=== PATIENT | female | born 2000 | race African-American/Black ===

== ENCOUNTER 2019-11-04 14:35 | Emergency (ER) | payer OTHER ==
[2019-11-04 15:40] VITALS: BP 112/68
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
[2019-11-04] MEDS ORDERED: ORPHENADRINE CITRATE 60 MG/2 ML VIAL. IM ONE (16:15)
[2019-11-04] MEDS ORDERED: HYDROcodone/APAP 5/325MG 1 TAB TABLET PO ONE (16:15)
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
[2019-11-04] MEDS ORDERED: NAPR-514 PO (17:59)
[2019-11-04] MEDS ORDERED: CYCL10TA2 PO (17:59)
== END 2019-11-04 18:36 | disposition home or self-care (01) ==
LOC: ER 14:35
DX: S16.1XXA Strain of muscle, fascia and tendon at neck level, initial encounter (principal); M25.552 Pain in left hip; R00.2 Palpitations; M25.512 Pain in left shoulder; M25.562 Pain in left knee; V49.9XXA Car occupant (driver) (passenger) injured in unspecified traffic accident, initial encounter; Y93.89 Activity, other specified; Y92.413 State road as the place of occurrence of the external cause; Y99.8 Other external cause status
CPT/HCPCS: 73502; 81025; 96372; 99284; J2360